=== PATIENT | male | born 1980 | race Caucasian/White ===

== ENCOUNTER → 2021-10-09 14:54 | Outpatient (CLI) | payer MEDICAID, SELFPAY | PROVIDERS: PCP Nurse Practitioner Family; Visit Provider Nurse Practitioner Family | DX: L02.224 Furuncle of groin (principal); B95.2 Enterococcus as the cause of diseases classified elsewhere | CPT/HCPCS: 87070; 87077; 87186; 87205 ==

== ENCOUNTER → 2021-11-16 09:56 | Outpatient (CLI) | payer MEDICAID, SELFPAY ==
[2021-11-16 10:31] LABS: Basophils # 0.1 K/mm3 (0-0.2); Eosinophils # 0.4 K/mm3 (0.0-0.4); Eosinophils % 7.4 % (0.1-12.0); Hematocrit 50.1 % (42.0-52.0); Hemoglobin 16.3 g/dL (14.1-18.0); Lymphocytes # 1.8 K/mm3 (0.7-4.5); Lymphocytes % 31.3 % (10-50); Mean Corpuscular HGB Conc 32.5 g/dL (31.8-35.4); Mean Corpuscular Hemoglobin 29.5 pg (27.0-31.2); Mean Platelet Volume 10.3 fl (7.4-10.4); Monocytes # 0.4 K/mm3 (0.1-1.0); Monocytes % 7.4 % (1.7-9.3); Neutrophils % 52.8 % (37.0-80.0); Platelet Count 77 K/mm3 (142-424); Red Blood Count 5.51 M/mm3 (4.60-6.20); Red Cell Distribution Width 13.7 % (11.5-17.5); White Blood Count 5.7 K/mm3 (4.8-10.8)
[2021-11-16 11:11] LABS: Chloride 107 mmol/L (98-107); Potassium 4.2 mmoL/L (3.5-5.1); Sodium 141 mmol/L (136-145)
[2021-11-16 11:14] LABS: Anion Gap 8.2 mEq/L (5-15); Blood Urea Nitrogen 11 mg/dl (9-20); Calcium 8.9 mg/dl (8.4-10.2); Carbon Dioxide 30 mmol/L (22.0-30.0); Estimated Glomerular Filt Rate 149 ml/min (>60); GFR (African American) 181 ML/MIN (>60); Glucose 142 mg/dl (74-100)
== END ==
PROVIDERS: PCP Family Medicine; Visit Provider Surgery
DX: Z01.812 Encounter for preprocedural laboratory examination (principal); Z20.822 Contact with and (suspected) exposure to COVID-19; L02.224 Furuncle of groin
CPT/HCPCS: 36415; 80048; 85025; C9803; U0003; U0005

== ENCOUNTER 2021-11-18 10:32 | Day surgery (SDC) | payer MEDICAID, SELFPAY ==
[2021-11-15 10:11] VITALS: BMI 41.1
[2021-11-18] VITALS (10 sets, daily range): BP systolic 118–166; BP diastolic 73–96; PULSE 69–78; RESP 16–20; TEMP 36.2–36.8; O2SAT 92–98
--- NOTE | 2021-11-18 11:32 | SUR.PREOP ---
Dr. Arciniega notified of plt count of 77. No new orders a this time.
--- NOTE | 2021-11-18 13:23 | P.OP_ITS ---
Date of procedure: 11/18/21 Pre-op Diagnosis:: Left groin/medial proximal thigh hidradenitis Post-op Diagnosis:: Same Procedure performed:: Incision and drainage of left medial proximal thigh hidradenitis suppurativa with debridement of skin and subcutaneous tissue Surgeon:: Edmundo Arciniega MD SINGLE STROKE PREFORMER:: Gianfranco Tay Anesthesia: LMA Estimated blood loss (mL): 10 Clinical Note:: Patient is a 41-year-old male from [place] referred by Uzair Mccloud for left groin abscess. Patient states that this is actually been present for about 1 month. He had been seen in [place] and underwent limited incision and drainage. He had persistent drainage. He ultimately did undergo cultures and his primary care provider's office and this returned as Enterococcus faecalis. He has had persistent drainage and an area of firmness and therefore was sent for surgical consultation.he was seen and examined in the office. This appears to be infected hidradenitis suppurativa. I feel that it may benefit from debridement and excision as a limited procedure. Explained him the nature and details of the proposed procedure along with associated risks. I also explained to him that this is a chronic recurrent problem and he may ultimately benefit from dermatology evaluation for medical therapy and potential more minimal interventional therapy prior to developing significant soft tissue infection secondarily. Preoperatively the patient's blood work revealed thrombocytopenia with a platelet count of 77,000. Patient was questioned about chronic medical co nditions preoperatively. He was specifically asked about hepatitis. He does state that he previously had hepatitis C but it went dormant . Operative findings:: Consistent with focal abscess hidradenitis suppurativa. He did have extensive skin changes widespread consistent with nonabscess hidradenitis. Operative note:: Consent was obtained and patient was taken the operating room. He was positioned in supine position. General anesthesia was induced via LMA. He was positioned in somewhat of a frog-leg position for lateral access to the area of indurated abscessed hidradenitis. He did have findings consistent with chronic noninfected hidradenitis diffusely. There was some serous purulent drainage from the area. Limited incision was made. The area was cultured. The wound was probed and there was underlying subcu dural abscess cavity consistent with hidradenitis. This was opened with electrocautery. Wound was probed. Carlos Manuel e skin with limited subcutaneous tissue was debrided using electrocautery. This was sent off for specimen. Wound was packed with dry gauze and covered with clean dry sterile dressing. Condition: stable Disposition: PACU Specimens:: Debrided tissue Complications:: None immediately apparent
--- NOTE | 2021-11-18 13:25 | P.PN_ITS ---
[facility] Anesthesia Checklist - Patient Identification Patient Identification: Arm Band - Structural Data Admitted From: Home Planned Operative Procedure/s: I&D Left Groin Hidratinitis Consent for Planned Operative Procedure(s) Verified: Yes Verified Documents: Surgical Consent, History and Physical - NPO Status Verified Time NPO: 00:00 - Additional verifications Anesthesia Reactions: No Hx Blood Transfusions: No Blood Transfusion Reaction: No - Airway Assessment C-Spine Mobility Assessed: Yes (mp2) TMJ Mobility Assessed: Yes Dentition: Poor Dentition - Neurological Assessment Level of Consciousness: Awake, Alert - Anesthesia Plan Anesthesia Risk discussed: Yes Anesthesia Plan: Verified ASA Class: III Anesthesia Type: General [facility] History I have reviewed the patient's past medical history: Yes Medical History: Reports:: Hepatitis Denies:: Cancer, Diabetes Mellitus Type 1, Diabetes Mellitus Type 2, Internal Pacemaker, MRSA, Seizures *Have you ever received a pneumonia vaccine?: Yes *Have you received a flu vaccine this season?: Yes Other Medical History: Denies: Blood Transfusion Reaction Anesthesia experience/problems:: nac Laterality Cases: Bilateral: Myringotomy (Ear Tubes) Other Surgeries: No: Pacemaker Amputation: No Fractures: No - *Social History Last grade of school completed: High school graduate Smoking Status: Current every day smoker Tobacco Type: cigarettes # Packs/Day (cigarettes): 1 Alcohol Intake: current Alcohol Intake Frequency:: holidays/special occasions only Substance Use Type: former substance user, club/freelance graphic designer drugs *Occupational Status:: unemployed Housing: house Household Members: significant other *Travel in the last 8 weeks: None Family Hx:: No significant family history
--- NOTE | 2021-11-18 13:26 | HMH.ANESI ---
[facility] Anesthesia Record Part I Intake, IV Amount: 500 Estimated blood loss (mL): 5 Urine output (mL): 0 Blood Pressure: 144/95 SaO2: 93 Pulse Rate: 74 Respiratory Rate: 16 Temperature: 97.2 F Patient is:: Drowsy, Stable Stable to PACU at:: 13:20
--- NOTE | 2021-11-18 13:58 | PC.NURSE ---
1346-detailed report called to ROGER Bentley 0224-pt transported to post op via stretcher w/mook rails up and left in care of ROGER Bentley with bed locked in lowest position, vss, pt stable
--- NOTE | 2021-11-19 07:22 | HMH.ANESII ---
[facility] Anesthesia Record Part II Discharge Time: 13:50 Destination: Surgical Day Care (OP Surgery) PACU nurse assessment reviewed?: Yes Patient Condition:: Good Anesthesia Complications:: None Swallowing reflex intact?: Yes Cyanosis?: No Blood Pressure: 142/89 Pulse Rate: 69 Temperature: 97.5 F Mental Status: Alert & Oriented Pain level:: 0 Nausea and/or vomitting:: None Intake, IV Amount: 0
[2021-11-19 07:23] VITALS: BP 142/89; PULSE 69; TEMP 36.4
== END 2021-11-18 14:25 | disposition home or self-care (01) ==
LOC: OR 10:35
PROVIDERS: PCP Nurse Practitioner Family; Visit Provider Surgery
PROC: (CPT 10061; principal; 2021-11-18 12:00)
DX: L73.2 Hidradenitis suppurativa (principal); B19.20 Unspecified viral hepatitis C without hepatic coma; Z72.0 Tobacco use; Z79.899 Other long term (current) drug therapy
CPT/HCPCS: 10061; 87070; 87075; 87205; 96374; J2405